=== PATIENT | female | born 1995 | race Two or more races ===

== ENCOUNTER 2025-08-01 21:10 | Inpatient (IN) | payer OTHER ==
[~2025-08-01] VITALS: Ht 157.5 cm; Wt 72.6 kg
[2025-08-01] MEDS ORDERED: BUTORPHANOL TARTRATE 2 MG/1 ML VIAL IV PRN ×2 (21:45)
[2025-08-01] MEDS: WITCH HAZEL-GLYCERIN PAD TOP PRN (22:21)
[2025-08-01] MEDS: PHISODERM TOP SOLN 240ML BTL TOP PRN (22:21)
[2025-08-01] MEDS: LACTATED RINGER'S 1,000 ML IV SCH (22:21)
[2025-08-01] MEDS: DERMOPLAST 60ML BOTTLE TOP PRN (22:22)
[2025-08-01 22:28] LABS: Hematocrit 32.5 % (36.0-46.0); Hemoglobin 10.6 g/dL (12.2-16.2); Mean Corpuscular Hemoglobin 24.6 pg (28.0-32.0); Mean Corpuscular Volume 75.7 fL (80.0-100.0); Nucleated Red Blood Cells % 0.1 %
[2025-08-01 22:42] LABS: INR 0.94 (0.9-1.15); Partial Thromboplastin Time 27.8 SEC (24.5-34.5); Prothrombin Time 10.0 sec (9.3-11.8)
[2025-08-01 22:47] LABS: Albumin 3.6 g/dL (3.2-4.8); Anion Gap 12 (5-15); BUN/Creatinine Ratio 10.8 (10.0-20.0); Calcium 8.8 mg/dL (8.7-10.4); Glucose 84 mg/dL (74-106); Potassium 4.0 mmol/L (3.5-5.1); Sodium 140 mmol/L (136-145); Total Protein 6.5 g/dL (5.7-8.2)
[2025-08-01 22:48] LABS: Bilirubin, Total 0.4 mg/dL (0.2-1.0)
[2025-08-01 22:49] LABS: Alanine Aminotransferase < 9 U/L (7-40); Alkaline Phosphatase 288 U/L (46-116); Blood Urea Nitrogen 7 mg/dL (9-23); Carbon Dioxide 19 mmol/L (20-31); Chloride 109 mmol/L (98-107)
[2025-08-01 23:05] LABS: Urine Protein, UAD Normal (Negative)
--- NOTE | 2025-08-01 23:15 | LDN2 ---
Labor and Delivery Note Date 08/01/25 Age 30 3 Para 3 EDC 38.3 EGA 38.3 wk Diagnosis Term , spontaneous labor and delivery Vaginal Delivery: VTX Vacuum Assisted: No Placenta: Spontaneous Sex: Male Weight Pending Apgars 9/9 Amniotic Fluid: Clear Anesthesia None Episiotomy: No Repaired with 1st deg perineal lac repaired w/ 3-0 vicryl x 3 interrupted sutures under local anesthesia, 1% lidocaine plain (X 10 mL used) EBL 100 mL Complications None Comments/Significant Med Piotr uncomplicated Visit Coding OBGYN Date of Service: Aug 01, 2025 Billing Provider: GÓMEZ BOLAÑOS DO DATA COMMUNICATIONS ANALYST Common Visit Codes: PROCEDURE ONLY DATA COMMUNICATIONS ANALYST Procedure Codes: [id number] OB CARE,VAG DELIVERY GÓMEZ BOLAÑOS DO Aug 01, 2025 23:14
--- NOTE | 2025-08-01 23:17 | DVHHP2 ---
OB CC & HPI Date Date of Admission: Aug 01, 2025 Patient Identification: : 3 Para: 2 EGA: 38.3 Chief Complaints: Reason for admission: active labor History of Present Complaints Normal , uncomplicated Spontaneous labor, 8-9cm dilated on arrival. Denies VB or PROM PNL care w/ Dr Vargas, uncomplicated. GBS neg Past Medical History Cardiac: No pertinent Hx Pulmonary: No pertinent Hx Central Nervous System: No pertinent Hx GI: No pertinent Hx Hemotology/Oncology: No pertinent Hx Hepatobiliary: No pertinent Hx Psychiatric: No pertinent Hx Musculoskeletal: No pertinent Hx Rheumotologic: No pertinent Hx Infectious Disease: No peritnent Hx ENT: No pertinent Hx Renal/: No pertinent Hx Endocrine: No pertinent Hx Dermatology: No pertinent Hx Past Surgical History: No pertinent Hx OB History OB History Care: Good Care Ultrasounds: Normal mid trimester US Obstetrical Complications: None Medical Complications: None Allergies: Coded Allergies: NO KNOWN ALLERGIES (Unverified , 08/01/25) Current Medications Current Medications Medications (Trade) Dose Ordered Sig/Reece Route PRN Reason Start Time Stop Time Status Last Admin Lactated Ringer's 1,000 ml @ 125 mls/hr Q8H IV 08/01/25 21:45 08/01/25 22:21 Witch Harini (Tucks) 1 pad PRN PRN TOP PERINEAL AREA DISCOMFORT 08/01/25 21:45 08/01/25 22:21 Sodium Lauryl Sulfate (Phisoderm) 240 ml PRN PRN TOP PERINEAL AREA DISCOMFORT 08/01/25 21:45 08/01/25 22:21 Benzocaine (Dermoplast) 1 applic PRN PRN TOP PERINEAL AREA DISCOMFORT 08/01/25 21:45 08/01/25 22:22 Butorphanol Tartrate (Stadol Injection) 1 mg Q4HPRN PRN IV MODERATE PAIN (4-6 PAIN SCALE) 08/01/25 21:45 Butorphanol Tartrate (Stadol Injection) 2 mg Q4HPRN PRN IV SEVERE PAIN (7-10 PAIN SCALE) 08/01/25 21:45 Lidocaine HCl (Xylocaine) 40 ml ONCE PRN IJ PERINEAL AREA DISCOMFORT 08/01/25 21:45 Family & Social History Family/Social History Rubella: immune RPR/VDRL: Negative GBS Status: Negative HBsAG: Negative Review of Systems Constitutional: No symptom reported Ears, Nose, & Throat: No symptom reported Eyes: No symptom reported Pulmonary/Respiratory: No symptom reported Cardiovascular: No symptom reported Gastrointestinal: No symptom reported Genitourinary: No symptom reported Musculoskeletal: No symptom reported Skin: No symptom reported Psychiatric: No symptom reported Endocrine: No symptom reported Hemotologic/Lymphatic: No symptom reported OB Admission Exam Physical Exam HEENT: NCAT Heart: Rhythm Normal Lungs: Clear Abdomen: Gravid Extremities: Normal Reflexes: Normal Cervical Dilatation: 9cm Effacement: 100% Station: 0 Membranes: Intact Heart Rate: 140's Accelerations: Accelerations Present Decelerations: No Decelerations Short Term Variability: Present Custodial Variability: Average (6-25) Contractions on Admission: < 5 Minutes Apart Intensity: Firm OB Plan Plan Admitting Diagnosis: Early Term IUP 38.3 wk. spontaneous active labor GBS neg Categ 1 tracing Plan: Expectant Management Other Plan: Admit for labor and delivery; anticipated Informed consent obtained Visit Coding OBGYN Date of Service: Aug 01, 2025 Billing Provider: GÓMEZ BOLAÑOS DO CHUTE GREASER Common Visit Codes: [id number] INP/OBS CARE (HIGH) GÓMEZ BOLAÑOS DO Aug 01, 2025 23:17
[2025-08-01 23:18] LABS: Amphetamine Screen, Urine Neg (NEGATIVE); Barbiturate Scree,Urine Neg (NEGATIVE); Benzodiazephine Screen, Urine Neg (NEGATIVE); Cannabinoid Screen, Urine Neg (NEGATIVE); Cocaine Screen, Urine Neg (NEGATIVE); Opiate Scree,Urine Neg (NEGATIVE); Phencyclidine Screen, Urine Neg (NEGATIVE)
[2025-08-01] MEDS: LIDOCAINE 2%HCL (LOCAL ANESTH.) INJ 20ML MDV IJ PRN (23:21)
[2025-08-01] MEDS: LACT. RINGERS/OXYTOCIN 20UNITS 500 ML IV ONE ×2 (23:22→23:23)
[2025-08-02] VITALS (7 sets, daily range): BP systolic 98–124; BP diastolic 55–74; PULSE 51–82; RESP 17–18; TEMP 97.8–98.4; O2SAT 96–98
[2025-08-02] MEDS ORDERED: ONDANSETRON ODT 4 MG TAB PO PRN (00:15)
[2025-08-02] MEDS ORDERED: ACETAMINOPHEN 325 MG TAB PO PRN (00:15)
[2025-08-02] MEDS: IBUPROFEN 800 MG TAB PO SCH (00:59)
--- NOTE | 2025-08-02 06:44 | DVHPN2 ---
Progress Note Date Seen: Aug 02, 2025 Subjective s/p PPD# 1 Pain controlled. lochia mild vital signs Vital Sign Date Time Temp Pulse Resp B/P (MAP) Pulse Ox O2 Delivery O2 Flow Rate FiO2 08/02/25 03:00 98.4 64 17 105/55 (72) 97 98.4 08/02/25 02:00 Room Air medications Current Medications Medications Dose Ordered Sig/Reece Route Start Time Stop Time Status Last Admin Dose Admin Lactated Ringer's 1,000 ml @ 125 mls/hr Q8H IV 08/01/25 21:45 08/01/25 22:21 125 MLS/HR Witch Harini 1 pad PRN PRN TOP 08/01/25 21:45 08/01/25 22:21 1 PAD Sodium Lauryl Sulfate 240 ml PRN PRN TOP 08/01/25 21:45 08/01/25 22:21 240 ML Benzocaine 1 applic PRN PRN TOP 08/01/25 21:45 08/01/25 22:22 1 APPLIC Butorphanol Tartrate 1 mg Q4HPRN PRN IV 08/01/25 21:45 Butorphanol Tartrate 2 mg Q4HPRN PRN IV 08/01/25 21:45 Lidocaine HCl 40 ml ONCE PRN IJ 08/01/25 21:45 08/01/25 23:21 20 ML Acetaminophen 650 mg Q4HP PRN PO 08/02/25 00:15 Ondansetron HCl 4 mg Q4HPRN PRN PO 08/02/25 00:15 Docusate Sodium 200 mg HS PO 08/02/25 22:00 Ibuprofen 800 mg Q6HP PRN PO 08/02/25 06:30 laboratory and microbiology Laboratory Tests 08/01/25 22:00 Test 08/01/25 22:00 Range/Units Serum Glucose 84 74-106 mg/dL Objective O: AFVSS Chest: heart and lung sounds normal. Abd soft, non-tender, fundus firm, BS, no rebound or guarding, Ext Neg Homans, Non-tender, edema Lochia - minimal Labs Reviewed Assessment/Plan PPD#1 s/p doing well continue current care d/c planning Plan discussed with: Patient, Other (Dr Gordon assumed care) Visit Coding OBGYN Date of Service: Aug 02, 2025 Billing Provider: GÓMEZ BOLAÑOS DO MARKET RESEARCH MANAGER Common Visit Codes: [id number] INP/OBS CARE(MOD) GÓMEZ BOLAÑOS DO Aug 02, 2025 06:44
[2025-08-02] MEDS: IBUPROFEN 800 MG TAB PO PRN (12:39)
[2025-08-02] MEDS: DOCUSATE SOD 100 MG CAP PO SCH (22:23)
[2025-08-03 03:00] VITALS: PULSE 69; RESP 17; TEMP 98; O2SAT 98
--- NOTE | 2025-08-03 05:43 | DVHDS2 ---
Discharge Summary Date of Admission Aug 01, 2025 at 21:42 Date of Discharge: Aug 03, 2025 Admitting Diagnosis Labor Wounds: Mi vaginal perineal repaired clean dry intact Labs/Diagnostic Data: Laboratory Results Test 08/01/25 22:00 08/01/25 21:30 White Blood Count 7.4 10^3/uL (4.4-10.8) Red Blood Count 4.29 10^6/uL (4.0-5.20) Hemoglobin 10.6 g/dL (12.2-16.2) Hematocrit 32.5 % (36.0-46.0) Mean Corpuscular Volume 75.7 fL (80.0-100.0) Mean Corpuscular Hemoglobin 24.6 pg (28.0-32.0) Mean Corpuscular Hemoglobin Concent 32.5 g/dL (32.0-36.0) Red Cell Distribution Width 15.7 % (11.8-14.3) Platelet Count 206 10^3/uL (140-450) Mean Platelet Volume 9.4 fL (6.9-10.8) Neutrophils (%) (Auto) 59.3 % (37.0-80.0) Lymphocytes (%) (Auto) 33.6 % (10.0-50.0) Monocytes (%) (Auto) 6.0 % (0.0-12.0) Eosinophils (%) (Auto) 0.2 % (0.0-7.0) Basophils (%) (Auto) 0.9 % (0.0-2.0) Neutrophils # (Auto) 4.4 10 ^3/uL (1.6-8.6) Lymphocytes # (Auto) 2.5 10 ^3/uL (0.4-5.4) Monocytes # (Auto) 0.4 10 ^3/uL (0-1.3) Eosinophils # (Auto) 0 10 ^3/uL (0-0.8) Basophils # (Auto) 0.1 10 ^3/uL (0-0.2) Nucleated Red Blood Cells 0.1 % Prothrombin Time 10.0 sec (9.3-11.8) Prothrombin Time INR 0.94 (0.9-1.15) Activated Partial Thromboplast Time 27.8 SEC (24.5-34.5) Sodium Level 140 mmol/L (136-145) Potassium Level 4.0 mmol/L (3.5-5.1) Chloride Level 109 mmol/L (98-107) Carbon Dioxide Level 19 mmol/L (20-31) Anion Gap 12 (5-15) Blood Urea Nitrogen 7 mg/dL (9-23) Creatinine 0.65 mg/dL (0.550-1.02) Glomerular Filtration Rate Calc 120 mL/min (>90) BUN/Creatinine Ratio 10.8 (10.0-20.0) Serum Glucose 84 mg/dL (74-106) Calcium Level 8.8 mg/dL (8.7-10.4) Total Bilirubin 0.4 mg/dL (0.2-1.0) Aspartate Amino Transferase (AST) 14 U/L (13-40) Alanine Aminotransferase (ALT) < 9 U/L (7-40) Alkaline Phosphatase 288 U/L (46-116) Total Protein 6.5 g/dL (5.7-8.2) Albumin 3.6 g/dL (3.2-4.8) Treponema pallidum Antibody Non-reactive (Negative) Hepatitis C Antibody Negative (Negative) Urine Color Colorless (Yellow) Urine Clarity Clear (Clear) Urine pH 6.5 (5.0-9.0) Urine Specific [place] 1.014 (1.001-1.035) Urine Protein Normal (Negative) Urine Ketones Negative (Negative) Urine Blood Normal /uL (Negative) Urine Nitrite Negative (Negative) Urine Bilirubin Negative (Negative) Urine Urobilinogen Normal mg/dL (Negative) Urine Leukocyte Esterase Trace /uL (Negative) Urine Glucose Normal mg/dL (Normal) Urine Opiates Screen Neg (NEGATIVE) Urine Fentanyl Screen Neg (NEGATIVE) Urine Barbiturates Screen Neg (NEGATIVE) Urine Phencyclidine Screen Neg (NEGATIVE) Urine Amphetamines Screen Neg (NEGATIVE) Urine Benzodiazepines Screen Neg (NEGATIVE) Urine Cocaine Screen Neg (NEGATIVE) Urine Cannabinoids Screen Neg (NEGATIVE) Other Laboratory Tests 08/01/25 22:00 Brief Hx & Hospital Course: Patient presented in labor delivered normal spontaneous vaginal delivery and minor vaginal laceration repair Consults/Reason for consult None Operations or Procedures None Condition at Discharge: Good Final Diagnosis/Problems List Status post day 2 stable for discharge home. Discharge Disposition: Home Discharge Instruct/Medications Diet: Regular Activity: Light activity (Pelvic rest 6 weeks) Follow Up/Referral: Follow up primary OB physician 2 weeks or PRN precautions given Medications: Tylenol PRN Discharge Statement: "Patient was advised to return to the ER or call 911 if any headaches, dizziness, shortness of breath, chest pain, abdominal pain, bleeding, fevers, or worsening of medical condition. Patient was counseled about treatment plan, medications, possible side effects, patientverbalized understanding. All questions were answered to the best of my ability. This discharge took greater then 30 minutes in planning, reviewing documentation, counseling the patient, and discussing with other team members." ASSESSMENT ASSESSMENT Assessment Visit Coding OBGYN Date of Service: Aug 03, 2025 Billing Provider: TAM PATTERSON DO STUDENT SERVICES COUNSELOR Common Visit Codes: [id number] INP/OBS CARE(HIGH) STUDENT SERVICES COUNSELOR Procedure Codes: [id number] OB CARE,VAG DELIVERY TAM PATTERSON DO Aug 03, 2025 05:43
[2025-08-03] MEDS: TETANUS-DIPTH-ACEL PERTUSSIS 0.5ML SYR Tdap IM ONE (06:51)
[2025-08-03 07:00] VITALS: BP 119/73; PULSE 55; RESP 15; TEMP 98.4; O2SAT 98
[2025-08-03 10:53] VITALS: BP 122/75; PULSE 78; RESP 16; TEMP 98.2; O2SAT 97
== END 2025-08-03 11:06 | disposition home or self-care (01) | DRG 807 ==
LOC: UNDOADMOB 21:10 → LDRP 21:10 → OBSVTOIN 21:42 → LDRP 08-02 00:24
PROVIDERS: ADMIT Obstetrics & Gynecology; ATTEND Obstetrics & Gynecology
PROC: 10E0XZZ Delivery of Products of Conception, External Approach (ICD-10-PCS; principal; 2025-08-01)
PROC: 0HQ9XZZ Repair Perineum Skin, External Approach (ICD-10-PCS; 2025-08-01)
DX: O70.0 First degree perineal laceration during delivery (principal); Z37.0 Single live birth; Z3A.38 38 weeks gestation of pregnancy
CPT/HCPCS: 36415; 59025; 59409; 80053; 80307; 81003; 85025; 85610; 85730; 86780; 86803; 86850; 86900; 86901; 90715; 94760; 94762; 96360; 96361; 96365; 96372; A4618; G0378; J2590